=== PATIENT | female | born 1955 | race Caucasian/White ===

== ENCOUNTER 2018-04-02 18:19 | Observation (INO) | payer OTHER ==
[~2018-04-02] VITALS: Ht 167.6 cm; Wt 82.1 kg
[2018-04-02] MEDS ORDERED: SODIUM CHLORIDE FLUSH 10ML SYR IVF ONE (18:30)
[2018-04-02 19:07] LABS: BASOPHILS # (AUTO) 0.04 x10^3/uL (0-0.1); BASOPHILS % (AUTO) 0 % (0-1); EOSINOPHILS # (AUTO) 0.02 x10^3/uL (0-0.4); EOSINOPHILS % (AUTO) 0 % (1-7); LYMPHOCYTES # (AUTO) 1.72 x10^3/uL (1-3.4); LYMPHOCYTES % (AUTO) 14 % (22-44); MD NO; MEAN CORPUSCULAR HEMOGLOBIN 30.4 pg (27.0-34.8); MEAN CORPUSCULAR HGB CONC 34.2 g/dL (32.4-35.8); MEAN PLATELET VOLUME 7.3 fL (7.4-10.4); MONOCYTES # (AUTO) 0.49 x10^3/uL (0.2-0.8); MONOCYTES % (AUTO) 4 % (2-9); NEUTROPHILS # (AUTO) 10.08 x10^3/uL (1.8-6.8); NEUTROPHILS % (AUTO) 82 % (42-75); PLATELET COUNT 295 x10^3/uL (130-400); RED BLOOD COUNT 4.46 x10^6/uL (3.82-5.3); RED CELL DISTRIBUTION WIDTH 12.8 % (9.6-15.2)
[2018-04-02] MEDS ORDERED: EZET10TA18 PO (19:12)
[2018-04-02 19:26] LABS: CALCIUM 9.5 mg/dL (8.5-10.1); CHLORIDE 101 mmol/L (98-107)
[2018-04-02] MEDS ORDERED: metroNIDAZOLE 5 MG/ML INJ 500 MG in SYRINGE 1 EA IV SCH (19:30)
[2018-04-02] MEDS ORDERED: CEFTRIAXONE 1,000 MG in SODIUM CHLORIDE 0.9% 50 ML IVPB ONE (19:30)
[2018-04-02 19:32] LABS: ALANINE AMINOTRANSFERASE 31 U/L (12-78); ALBUMIN 4.2 g/dL (3.4-5.0); ALKALINE PHOSPHATASE 76 U/L (45-117); ANION GAP 7 mmol/L (5-15); BILIRUBIN,TOTAL 0.7 mg/dL (0.2-1.0); CREATININE 0.82 mg/dL (0.55-1.02); TOTAL PROTEIN 8.1 g/dL (6.4-8.2)
[2018-04-02] MEDS ORDERED: METRONIDAZOLE PMX 500MG/100ML 100 ML ONE (19:52)
[2018-04-02] MEDS ORDERED: CEFTRIAXONE PMX 1GM/50ML 50 ML ONE (19:52)
[2018-04-02] MEDS ORDERED: METRONIDAZOLE PMX 500MG/100ML 100 ML IVPB ONE (20:00)
[2018-04-02] MEDS ORDERED: BUPIVACAINE/PF 0.5% ONE (20:49)
[2018-04-02] MEDS ORDERED: FENTANYL PF 250 MCG/5ML ONE (21:17)
[2018-04-02] MEDS ORDERED: BUPIVACAINE/PF 0.5% INFIL ONE (21:51)
[2018-04-02] MEDS ORDERED: DEXAMETHASONE 4 MG/ML, 1ML ONE (21:52)
[2018-04-02] MEDS ORDERED: SUCCINYLCHOLINE 20 MG/ML, 10ML ONE (21:52)
[2018-04-02] MEDS ORDERED: PROPOFOL 10 MG/ML, 20ML ONE (21:52)
[2018-04-02] MEDS ORDERED: ONDANSETRON 2MG/ML, 2ML ONE (21:52)
[2018-04-02] MEDS ORDERED: ROCURONIUM 10MG/ML,5ML ONE (21:52)
[2018-04-02] MEDS ORDERED: MIDAZOLAM 1 MG/ML, 2ML IV PRN (22:00)
[2018-04-02] MEDS ORDERED: MEPERIDINE/PF 25MG/0.5ML IVPush PRN (22:00)
[2018-04-02] MEDS ORDERED: ACETAMINOPHEN 325 MG TABLET PO PRN (22:00)
[2018-04-02] MEDS ORDERED: PROMETHAZINE 25 MG SUPP PR PRN (22:00)
[2018-04-02] MEDS ORDERED: OXYcodone 5 MG/5 ML ORAL.SOL UDC PO PRN (22:00)
[2018-04-02] MEDS ORDERED: EPHEDRINE 50 MG/ML, 1ML IM PRN (22:00)
[2018-04-02] MEDS ORDERED: PROMETHAZINE 12.5 MG SUPP PR PRN (22:00)
[2018-04-02] MEDS ORDERED: PROMETHAZINE 25 MG/ML, 1ML IV PRN (22:00)
[2018-04-02] MEDS ORDERED: ONDANSETRON ODT 8 MG PO PRN (22:00)
[2018-04-02] MEDS ORDERED: DIPHENHYDRAMINE 50 MG/ML, 1ML IVPush PRN (22:00)
[2018-04-02] MEDS ORDERED: FENTANYL PF 100 MCG/2ML IV PRN (22:00)
[2018-04-02] MEDS ORDERED: MORPHINE SULFATE 4 MG/ML, 1ML IVPush PRN (22:00)
[2018-04-02] MEDS ORDERED: OXYcodone 5 MG/5 ML ORAL.SOL UDC ONE (22:12)
[2018-04-02] MEDS ORDERED: ACETAMINOPHEN 650 MG/20.3 ML UDC ONE (22:12)
[2018-04-02 23:30] VITALS: BP 127/74
[2018-04-03 03:09] VITALS: BP 123/78
[2018-04-03] MEDS ORDERED: OXYcodone/APAP 5/325MG TABLET PO PRN (03:30)
[2018-04-03 07:12] VITALS: BP 108/67
[2018-04-03 08:44] VITALS: BP 104/64
[2018-04-03] MEDS ORDERED: OXYC-302 PO (08:53)
== END 2018-04-03 09:50 | disposition home or self-care (01) ==
LOC: ED 19:34 → EDIP 19:39 → INTOOBSV 19:39 → ED 20:16 → 4NOR 20:53 → DCLOUNGE 04-03 09:27
PROVIDERS: ADMIT Surgery; ATTEND Surgery
DX: K35.3 Acute appendicitis with localized peritonitis (principal); E78.00 Pure hypercholesterolemia, unspecified
CPT/HCPCS: 36415; 44970; 80053; 85025; 88304; 96365; 99285; G0378; J0330; J1100; J2405; J2704; J3010; J3490